=== PATIENT | female | born 1990 | race African-American/Black ===

== ENCOUNTER 2016-09-27 23:03 | Emergency (ER) | payer SELFPAY ==
--- NOTE | 2016-09-28 01:34 | ER Document Report ---
ED Skin Rash/Insect Bite/Abscs - General Chief Complaint: Rash Stated Complaint: SKIN PROBLEM Notes: The patient is a 26-year-old female who presents with 2 days of a painful rash on her left back and then left upper thigh. She thinks that it was a spider bite. She has not had this in the past. She denies fevers, numbness, tingling , pruritus, recent travel or IV drug use. TRAVEL OUTSIDE OF THE [place] IN LAST 30 DAYS: No - Related Data Allergies/Adverse Reactions: No Known Allergies Allergy (Verified 09/28/16 01:24) Past Medical History - General Information source: Patient - Social History Smoking Status: Unknown if Ever Smoked Family History: DM, Hypertension. denies: Arthritis, CAD, CVA, Hyperlipidemia, Malignancy, Thyroid Disfunction Patient has suicidal ideation: No Patient has homicidal ideation: No Renal/ Medical History: Denies: Hx Peritoneal Dialysis Musculoskeltal Medical History: Reports Hx Musculoskeletal Trauma Psychiatric Medical History: Reports: Hx Anxiety - Immunizations Immunizations up to date: Yes Hx Diphtheria, Pertussis, Tetanus Vaccination: Yes - 2008 Review of Systems - Review of Systems Notes: REVIEW OF SYSTEMS: CONSTITUTIONAL: -fevers, -chills EENT: -eye pain, -difficulty swallowing, -nasal congestion CARDIOVASCULAR:-chest pain, -syncope. RESPIRATORY: -cough, -SOB GASTROINTESTINAL: -abdominal pain, - nausea, -vomiting, -diarrhea GENITOURINARY: -dysuria, -hematuria MUSCULOSKELETAL: -back pain, -neck pain SKIN: +rash HEMATOLOGIC: -easy bruising or bleeding. LYMPHATIC: -swollen, enlarged glands. NEUROLOGICAL: -altered mental status or loss of consciousness, -headache, - neurologic symptoms PSYCHIATRIC: -anxiety, -depression. ALL OTHER SYSTEMS REVIEWED AND NEGATIVE. Physical Exam - Vital signs Vitals: Temp Pulse Resp BP Pulse Ox 98.2 F 84 16 136/84 H 100 09/27/16 23:12 09/27/16 23:12 09/27/16 23:12 09/27/16 23:12 09/27/16 23:12 - Notes Notes: PHYSICAL EXAMINATION: GENERAL: Well-appearing, well-nourished and in no acute distress. HEAD: Atraumatic, normocephalic. EYES: Pupils equal round and reactive to light, extraocular movements intact, sclera anicteric, conjunctiva are normal. ENT: nares patent, oropharynx clear without exudates. Moist mucous membranes. NECK: Normal range of motion, supple without lymphadenopathy LUNGS: Breath sounds clear to auscultation bilaterally and equal. No wheezes rales or rhonchi. HEART: Regular rate and rhythm without murmurs ABDOMEN: Soft, nontender, normoactive bowel sounds. No guarding, no rebound. No masses appreciated. EXTREMITIES: Normal range of motion, no pitting or edema. No cyanosis. NEUROLOGICAL: Cranial nerves grossly intact. Normal speech, normal gait. Normal sensory, motor, and reflex exams. PSYCH: Normal mood, normal affect. SKIN: Discrete, tender, erythematous regions over left lower back and left upper leg Course - Re-evaluation Re-evalutation: Patient's symptoms consistent with mild cellulitis. No abscess seen. Does not appear to be zoster. Will begin Bactrim. Given return precautions and she understands. - Vital Signs Vital signs: Temp Pulse Resp BP Pulse Ox 98.2 F 91 15 136/84 H 100 09/27/16 23:14 09/27/16 23:14 09/27/16 23:14 09/27/16 23:14 09/27/16 23:14 Discharge - Discharge Clinical Impression: Cellulitis Qualifiers: Site of cellulitis: unspecified site Qualified Code(s): L03.90 - Cellulitis, unspecified Condition: Good Disposition: HOME, SELF-CARE Additional Instructions: CELLULITIS: You have an infection of your skin and underlying soft tissues called cellulitis. This is due to bacteria, which can enter through any break in the skin, or even through an irritated hair follicle. Untreated, cellulitis will usually worsen. Antibiotics are required. Usually, warm packs or warm soaks, and elevation of the infected area are recommended. You should start getting better within 24 to 36 hours. Most infections respond quickly to the right medication. Follow-up care is important, however, to check for abscess (boil) formation, unsuspected foreign body, or resistant infection. If you develop fever, chills, or if the area of infection is becoming rapidly more swollen or painful, call the doctor at once. MRSA CELLULITIS: You have an infection of your skin and underlying soft tissues called cellulitis. This is due to bacteria, which can enter through any break in the skin, or even through an irritated hair follicle. Untreated, cellulitis will usually worsen and may form an abscess which requires draining. Although many bacterial organisms can cause cellulitis and abscess formations, the most likely bacteria is Methicillin-Resistant Staph Aureus, or MRSA for short. Antibiotics are required. Usually, warm packs or warm soaks, and elevation of the infected area are recommended. You should start getting better within 24 to 36 hours. Most infections respond quickly to the right medication. Follow-up care is important, however, to check for abscess (boil) formation, unsuspected foreign body, or resistant infection. If you develop fever, chills, or if the area of infection is becoming rapidly more swollen or painful, call the doctor at once. ANTIBIOTIC THERAPY: You have been given an antibiotic prescription. It's important that you take all the medication, unless instructed otherwise by your physician. Failure to complete the entire course can result in relapse of your condition. Common side effects of antibiotics include nausea, intestinal cramping, or diarrhea. Women may develop vaginal yeast infections, and babies can get yeast (thrush) in the mouth following the use of antibiotics. Contact your physician if you develop significant side effects from this medication. Allergy to this antibiotic can result in hives, wheezing, faintness, or itching. If symptoms of allergy occur, stop the medication and call the doctor. TRIMETHOPRIM-SULFA: You have been given a prescription for trimethoprim-sulfa (TMS, Septra, Bactrim). This is a combination antibiotic of the sulfa class, often used for urinary tract infections, middle ear infections, bronchitis, shigella intestinal infection, and Pneumocystis pneumonia. TMS is usually well-tolerated. Occasional side effects include nausea and decreased appetite. Septra is not recommended for infants less than two months of age. Do not take this medication if you have experienced severe side effects or allergy to sulfa medicine. You should stop this medicine at once and contact your physician if you develop any rash, joint pain, shortness of breath, bruising, or jaundice ( yellow color in the skin), or if you develop any other new or unusual symptoms. FOLLOW-UP CARE: If you have been referred to a physician for follow-up care, call the physician s office for an appointment as you were instructed or within the next two days. If you experience worsening or a significant change in your symptoms, notify the physician immediately or return to the Emergency Department at any time for re-evaluation. Prescriptions: Sulfamethoxazole/Trimethoprim [Bactrim Ds Tablet] 2 each PO Q12H 7 Days
[2016-09-28] MEDS ORDERED: SULFAMETHOXAZOLE/TRIMETHOPRIM 800-160 MG TABLET PO ONE (01:49)
[2016-09-28 02:26] VITALS: BP 127/74
== END 2016-09-28 02:25 | disposition home or self-care (01) ==
LOC: ER 23:03
DX: L03.90 Cellulitis, unspecified (principal); R21 Rash and other nonspecific skin eruption
CPT/HCPCS: 99282

== ENCOUNTER 2018-01-04 17:14 | Emergency (ER) | payer SELFPAY ==
--- NOTE | 2018-01-04 19:11 | RADIOLOGY REPORT (SQ) ---
EXAM DESCRIPTION: KNEE LEFT 4 VIEW COMPLETED DATE/TIME: 01/04/2018 7:04 pm REASON FOR STUDY: left knee swelling COMPARISON: None. NUMBER OF VIEWS: Four views. TECHNIQUE: AP, lateral, and both oblique radiographic images acquired of the left knee. LIMITATIONS: None. FINDINGS: MINERALIZATION: Normal. BONES: No acute fracture or dislocation. No worrisome bone lesions. No significant osteophytes. JOINT: No effusion. No chondrocalcinosis. OTHER: No other significant finding. IMPRESSION: NEGATIVE STUDY OF THE LEFT KNEE. NO EXPLANATION FOR PAIN. TECHNICAL DOCUMENTATION: JOB ID: [id number] [employer]- All Rights Reserved Reading location - IP/workstation name: [email or web address]
--- NOTE | 2018-01-04 19:46 | ER Document Report ---
ED Extremity Problem, Lower - General Chief Complaint: Leg Swelling Stated Complaint: KNEE PAIN Time Seen by Provider: 01/04/18 18:49 Mode of Arrival: Ambulatory Information source: Patient Notes: Patient is a 27-year-old female who presents to the ER today for swelling to the anterior left knee 8 days. Patient states that it feels tight to the inside of the knee is also tender to touch. She denies any injury that she knows of. She denies any recent travel, hospitalization or surgery. She denies any history of blood clots or calf pain. She denies any redness, weakness or popping when she walks. TRAVEL OUTSIDE OF THE [place] IN LAST 30 DAYS: No - Related Data Allergies/Adverse Reactions: No Known Allergies Allergy (Verified 09/28/16 01:24) Past Medical History - General Information source: Patient - Social History Smoking Status: Never Smoker Family History: DM, Hypertension. denies: Arthritis, CAD, CVA, Hyperlipidemia, Malignancy, Thyroid Disfunction Patient has suicidal ideation: No Patient has homicidal ideation: No Renal/ Medical History: Denies: Hx Peritoneal Dialysis Musculoskeletal Medical History: Reports Hx Musculoskeletal Trauma Psychiatric Medical History: Reports: Hx Anxiety - Immunizations Immunizations up to date: Yes Hx Diphtheria, Pertussis, Tetanus Vaccination: Yes - 2008 Review of Systems - Review of Systems Constitutional: No symptoms reported EENT: No symptoms reported Cardiovascular: No symptoms reported Respiratory: No symptoms reported Gastrointestinal: No symptoms reported Genitourinary: No symptoms reported Female Genitourinary: No symptoms reported Musculoskeletal: See HPI Skin: No symptoms reported Hematologic/Lymphatic: No symptoms reported Neurological/Psychological: No symptoms reported Physical Exam - Vital signs Vitals: Temp Pulse Resp BP Pulse Ox 98.7 F 88 18 135/71 H 100 01/04/18 17:55 01/04/18 17:55 01/04/18 17:55 01/04/18 17:55 01/04/18 17:55 - Notes Notes: PHYSICAL EXAMINATION: GENERAL: Well-appearing and in no acute distress. HEAD: Atraumatic, normocephalic. EYES: Pupils equal round and reactive to light, extraocular movements intact, sclera anicteric, conjunctiva are normal. NECK: Normal range of motion, supple without lymphadenopathy LUNGS: CTAB and equal. No wheezes rales or rhonchi. HEART: Regular rate and rhythm without murmurs EXTREMITIES: Normal range of motion, no pitting edema. No cyanosis. NEUROLOGICAL: Cranial nerves grossly intact. Normal sensory/motor exams. PSYCH: Normal mood, normal affect. SKIN: Warm, Dry, normal turgor, no rashes or lesions noted Course - Re-evaluation Re-evalutation: 01/04/18 19:43 X-ray of the left knee negative for any acute pathology, will give orthopedic information for follow-up. - Vital Signs Vital signs: Temp Pulse Resp BP Pulse Ox 98.7 F 88 18 135/71 H 100 01/04/18 17:55 01/04/18 17:55 01/04/18 17:55 01/04/18 17:55 01/04/18 17:55 Discharge - Discharge Clinical Impression: Knee pain Qualifiers: Chronicity: acute Laterality: left Qualified Code(s): M25.562 - Pain in left knee Condition: Stable Disposition: HOME, SELF-CARE Additional Instructions: Return immediately for any new or worsening symptoms. Follow up with primary care provider, call tomorrow to make followup appointment. Referrals: MJ BEATTY MD [ACTIVE STAFF] - Follow up as needed
[2018-01-04 20:04] VITALS: BP 110/64
== END 2018-01-04 20:04 | disposition home or self-care (01) ==
LOC: ER 17:14
DX: M25.562 Pain in left knee (principal)
CPT/HCPCS: 99283

== ENCOUNTER 2018-08-30 20:52 | Emergency (ER) | payer SELFPAY ==
[2018-08-30 22:18] LABS: APPEARANCE,URINE CLEAR; BILIRUBIN,URINE NEGATIVE (NEGATIVE); COLOR,URINE YELLOW; GLUCOSE, URINE >=500 mg/dL (NEGATIVE); KETONES,URINE 20 mg/dL (NEGATIVE); LEUKOCYTE ESTERASE,URINE NEGATIVE (NEGATIVE); NITRITE,URINE NEGATIVE (NEGATIVE); PROTEIN,URINE NEGATIVE (NEGATIVE); URINE SPECIFIC GRAVITY 1.033; UROBILINOGEN,URINE NEGATIVE mg/dL (<2.0)
[2018-08-30] MEDS ORDERED: NORMAL SALINE 1000 ML 1,000 ML IV ONE (23:21)
--- NOTE | 2018-08-30 23:26 | ER Document Report ---
ED General - General Chief Complaint: Lower Abdominal Pain Stated Complaint: OVERACTIVE BLADDER,BLOOD IN URINE,UTERINE PAINS Time Seen by Provider: 08/30/18 22:54 Primary Care Provider: [facility] [Provider Group] - Follow up as needed [facility] [Provider Group] - Follow up in 3-5 days Notes: Patient is a 28-year-old female that comes to the emergency department for chief complaint of frequent urination, occasional abdominal cramping, intermittent vaginal bleeding out of her normal cycle, and possibly some blood in her urine. She also states that she bought a glucometer and check today at home and it was 350, she states she checked it again most recently it was in the 200s. She does not have a diagnosis of diabetes. She takes no daily medications. Type 2 diabetes does run in the family. TRAVEL OUTSIDE OF THE [place] IN LAST 30 DAYS: No - Related Data Allergies/Adverse Reactions: No Known Allergies Allergy (Verified 09/28/16 01:24) Past Medical History - General Information source: Patient - Social History Smoking Status: Never Smoker Frequency of alcohol use: None Drug Abuse: None Lives with: Family Family History: DM, Hypertension. denies: Arthritis, CAD, CVA, Hyperlipidemia, Malignancy, Thyroid Disfunction Renal/ Medical History: Denies: Hx Peritoneal Dialysis Musculoskeletal Medical History: Reports Hx Musculoskeletal Trauma Psychiatric Medical History: Reports: Hx Anxiety Surgical Hx: Negative - Immunizations Immunizations up to date: Yes Hx Diphtheria, Pertussis, Tetanus Vaccination: Yes - 2008 Review of Systems - Review of Systems Constitutional: See HPI EENT: No symptoms reported Cardiovascular: No symptoms reported Respiratory: No symptoms reported Gastrointestinal: See HPI Genitourinary: See HPI Female Genitourinary: See HPI Musculoskeletal: No symptoms reported Skin: No symptoms reported Hematologic/Lymphatic: No symptoms reported Neurological/Psychological: No symptoms reported Physical Exam - Vital signs Vitals: Temp Pulse Resp BP Pulse Ox 97.9 F 85 16 140/93 H 99 08/30/18 21:27 08/30/18 21:27 08/30/18 21:27 08/30/18 21:27 08/30/18 21:27 - Notes Notes: GENERAL: Alert, interacts well. No acute distress. HEAD: Normocephalic, atraumatic. EYES: Pupils equal, round, and reactive to light. Extraocular movements intact. ENT: Oral mucosa moist, tongue midline. Oropharynx unremarkable. Airway patent. Nares patent, no nasal septal hematoma, TM's intact. NECK: Full range of motion. Supple. Trachea midline. LUNGS: Clear to auscultation bilaterally, no wheezes, rales, or rhonchi. No respiratory distress. HEART: Regular rate and rhythm. No murmur ABDOMEN: Soft, non-tender. Non-distended. Bowel sounds present in all 4 quadrants. GENITOURINARY: Deferred EXTREMITIES: Moves all 4 extremities spontaneously. No edema, normal radial and dorsalis pedis pulses bilaterally. No cyanosis. BACK: no cervical, thoracic, lumbar midline tenderness. No saddle anesthesia, normal distal neurovascular exam. NEUROLOGICAL: Alert and oriented x3. Normal speech. [cranial nerves II through XII grossly intact]. PSYCH: Normal affect, normal mood. SKIN: Warm, dry, normal turgor. No rashes or lesions noted. Course - Re-evaluation Re-evalutation: Patient is well-appearing on exam, soft benign abdomen. She does have some blood in her urine but she is also on her menstrual cycle at this time, she has no dysuria, no signs of infection. Her frequency of urination appears to be from her hyperglycemia, she is significantly hyperglycemic at 628 with obvious previously undiagnosed type 2 diabetes. However her bicarbonate is normal, her anion gap is normal, she is not tachycardic, she is not currently symptomatic. After 1 L of IV fluids her glucose dropped down to 420. She appears to be very responsive. I found at bedside that patient was drinking Sunkist regular. I requested that she stop doing so. She was given insulin, additional IV fluids. Blood sugars dropped down to the 200s rapidly. She appears to be very responsive, she is a type II diabetic, however this appears to be significantly worsened by her diet. Patient admits to drinking consistently regular sodas and sweet tea in addition to carbohydrate consumption in her food. Because of her very responsive nature with her blood sugar, her very poor diet, I suspect that she will be reasonably managed with oral medication, improve diet, outpatient follow-up. I discussed this with Dr. Puri. Patient counseled on diet, me dications, follow-up, and return precautions. Patient and significant other state understanding and agreement. - Vital Signs Vital signs: Temp Pulse Resp BP Pulse Ox 98.0 F 82 18 138/83 H 100 08/31/18 04:35 08/31/18 04:35 08/31/18 04:35 08/31/18 04:35 08/31/18 04:35 - Laboratory Result Diagrams: 08/30/18 23:50 08/30/18 23:50 Laboratory results interpreted by me: 08/30/18 08/30/18 08/30/18 21:49 23:50 23:50 RDW 18.3 H Sodium 130.8 L Chloride 94 L Glucose 628 H* POC Glucose Urine Glucose (UA) >=500 H Urine Ketones 20 H Urine Blood LARGE H 08/31/18 08/31/18 02:12 03:56 RDW Sodium Chloride Glucose POC Glucose 420 H* 289 H Urine Glucose (UA) Urine Ketones Urine Blood Discharge - Discharge Clinical Impression: Hyperglycemia, Dehydration Type II diabetes mellitus Qualifiers: Diabetes mellitus senior living insulin use: without intermediate card tender use Diabetes mellitus complication status: without complication Qualified Code(s): E11.9 - Type 2 diabetes mellitus without complications Condition: Stable Disposition: HOME, SELF-CARE Additional Instructions: You have type 2 diabetes. You have been treated for dehydration and elevated blood glucose levels. Take the prescribed medication, avoid sugary foods including sodas, sweet tea, carbohydrates such as breads, cakes, etc. Eat mainly proteins and vegetables if you can. Follow-up closely with the primary care referral for additional evaluation and management of your diabetes. Return if you worsen including vomiting, dizziness, fever, or any other concerning symptoms. Prescriptions: Metformin HCl [Glucophage 500 mg Tablet] 500 mg PO BID #60 tablet Forms: Parent Work Note, Return to Work Referrals: [facility] [Provider Group] - Follow up in 3-5 days [facility] [Provider Group] - Follow up as needed
[2018-08-31 00:04] LABS: ABSOLUTE BASOPHILS # (AUTO) 0.1 10^3/uL (0.0-0.2); ABSOLUTE EOSINOPHILS # (AUTO) 0.1 10^3/uL (0.0-0.6); ABSOLUTE LYMPHOCYTES (AUTO) 2.2 10^3/uL (0.5-4.7); ABSOLUTE MONOCYTES (AUTO) 0.8 10^3/uL (0.1-1.4); ABSOLUTE NEUT (AUTO) 6.7 10^3/uL (1.7-8.2); BASOPHILS % (AUTO) 0.6 % (0-2); EOSINOPHILS % (AUTO) 0.9 % (0-6); HEMATOCRIT 39.5 % (36.0-47.0); LYMPHOCYTES % (AUTO) 22.4 % (13-45); MEAN CORPUSCULAR HEMOGLOBIN 27.7 pg (27.0-33.4); MEAN CORPUSCULAR VOLUME 84 fl (80-97); MONOCYTES % (AUTO) 8.4 % (3-13); PLATELET COUNT 399 10^3/uL (150-450); RED BLOOD COUNT 4.71 10^6/uL (3.72-5.28); RED CELL DISTRIBUTION WIDTH 18.3 % (11.5-14.0); SEGMENTED NEUTROPHILS % (AUTO) 67.7 % (42-78); TOTAL CELLS COUNTED % (AUTO) 100 %; WHITE BLOOD COUNT 9.9 10^3/uL (4.0-10.5)
[2018-08-31 00:29] LABS: ANION GAP 15 (5-19); BLOOD UREA NITROGEN 12 mg/dL (7-20); CALCIUM 9.6 mg/dL (8.4-10.2); CARBON DIOXIDE 22 mmol/L (22-30); CHLORIDE 94 mmol/L (98-107); POTASSIUM 4.4 mmol/L (3.6-5.0); SODIUM 130.8 mmol/L (137-145)
[2018-08-31 00:39] LABS: GLUCOSE 628 mg/dL (75-110)
[2018-08-31] MEDS ORDERED: NORMAL SALINE 1000 ML 1,000 ML IV ONE (00:58)
[2018-08-31] MEDS ORDERED: INSULIN REG, HUMAN 100 UNIT/ML 3 ML VIAL (PYX) SUBCUT ONE (02:14)
[2018-08-31 04:37] VITALS: BP 138/83
== END 2018-08-31 04:36 | disposition home or self-care (01) ==
LOC: ER 20:52
DX: E11.65 Type 2 diabetes mellitus with hyperglycemia (principal); E86.0 Dehydration; N93.9 Abnormal uterine and vaginal bleeding, unspecified; R10.30 Lower abdominal pain, unspecified; N32.81 Overactive bladder; R31.9 Hematuria, unspecified; R10.2 Pelvic and perineal pain; R35.0 Frequency of micturition
CPT/HCPCS: 99283; 96360; 96361; 36415; 82962; 85025; 81025; 80048; 81001; J1815; J7030 ×2

== ENCOUNTER 2018-12-05 13:39 | Emergency (ER) | payer SELFPAY ==
[2018-12-05 13:48] VITALS: BP 123/67
--- NOTE | 2018-12-05 14:47 | ER Document Report ---
Addendum entered and electronically signed by PAPO MARTINEZ PA-C 12/05/18 15:26: Course - Re-evaluation Re-evalutation: 12/05/18 15:19 Patient with symptoms consistent with a muscle strain after a fall. Patient able to bear weight on her left leg and ambulate with a limp. Normal distal neurovascular exam. No swelling of the knee or ankle. Tenderness to palpation along the medial posterior proximal left leg. Varus valgus stress testing did not reveal any significant laxity. Patient became irate and accused me of racial profiling due to miscommunication because of a request for her "pain medication". I wrote her a prescription for Motrin but clarified that narcotic pain medication is not appropriate for this type of injury and NSAIDs are the appropriate treatment with RICE therapy. She then proceeded to accuse me of racial profiling thinking that she was just a drug seeker. Throughout the entire interview for history and physical when I explained to her that she most likely sustained a muscle strain she repeatedly shook her head and acted miffed and stated "why did I even come here, I could have just done this at home". Patient was obviously disappointed and I told her that I will get her paperwork together give her a prescription for Motrin. At that point I went to see another patient, return to my workstation, and delayed in adding the Motrin prescription. I received a message from staff with the patient asking about her pain medication and I misconstrued that as her requesting narcotic pain medication when in fact it was Motrin. At no time was there any racial bias in the encounter. Patient was disrespectful to me and to the entire staff. Patient will be filing a complaint with administration. - Vital Signs Vital signs: Temp Pulse Resp BP Pulse Ox 99.4 F 107 H 20 123/67 100 12/05/18 13:47 12/05/18 13:47 12/05/18 13:47 12/05/18 13:47 12/05/18 13:47 Original Note: HPI - HPI Patient complains to provider of: left leg pain Time Seen by Provider: 12/05/18 14:15 Pain Level: 5 Context: 28-year-old healthy female presents emergency department with chief complaint of "pulled hamstring and buttock muscle". She said it happened yesterday when she fell and she was otherwise okay and now it is tight, she cannot bend her leg, and has difficulty putting pressure on her left leg. Denies any fevers or chills, denies hearing a pop, no other complaints. - REPRODUCTIVE Reproductive: DENIES: : Past Medical History - Social History Smoking Status: Unknown if Ever Smoked Family History: DM, Hypertension. denies: Arthritis, CAD, CVA, Hyperlipidemia, Malignancy, Thyroid Disfunction Renal/ Medical History: Denies: Hx Peritoneal Dialysis Musculoskeletal Medical History: Reports Hx Musculoskeletal Trauma Psychiatric Medical History: Reports: Hx Anxiety - Immunizations Immunizations up to date: Yes Hx Diphtheria, Pertussis, Tetanus Vaccination: Yes - 2008 Vertical Provider Document - CONSTITUTIONAL Notes: PHYSICAL EXAMINATION: Reviewed vital signs and charting by RN GENERAL: Alert, interacts well. No acute distress. HEAD: Normocephalic, atraumatic. EYES: Pupils equal and round. Extraocular movements intact. ENT: Oral mucosa moist, tongue midline. NECK: Full range of motion. Trachea midline. EXTREMITIES: Moves all 4 extremities spontaneously. No edema, No cyanosis. able to bear weight, can ambulate with a limp PSYCH: Normal affect, normal mood. SKIN: Warm, dry, normal turgor. No rashes or lesions noted. - INFECTION CONTROL TRAVEL OUTSIDE OF THE [place] IN LAST 30 DAYS: No Course - Re-evaluation Re-evalutation: 12/05/18 14:46 Symptoms consistent with a muscle strain, very low concern for internal knee injury. Patient able to bear weight on it with difficulty. I will offer crutches. No unilateral leg swelling, no fevers no pain out of proportion to movement. Stable for discharge - Vital Signs Vital signs: Temp Pulse Resp BP Pulse Ox 99.4 F 107 H 20 123/67 100 12/05/18 13:47 12/05/18 13:47 12/05/18 13:47 12/05/18 13:47 12/05/18 13:47 Discharge - Discharge Clinical Impression: Hamstring injury Qualifiers: Encounter type: initial encounter Laterality: left Qualified Code(s): S76.302A - Unspecified injury of muscle, fascia and tendon of the posterior muscle group at thigh level, left thigh, initial encounter Condition: Good Disposition: HOME, SELF-CARE Instructions: Muscle Strain ([facility]), Acetaminophen, Use of [id number] Ibuprofen ([facility])
== END 2018-12-05 15:22 | disposition home or self-care (01) ==
LOC: ER 13:39
DX: S76.302A Unspecified injury of muscle, fascia and tendon of the posterior muscle group at thigh level, left thigh, initial encounter (principal); M79.605 Pain in left leg; X50.0XXA Overexertion from strenuous movement or load, initial encounter
CPT/HCPCS: 99283

== ENCOUNTER 2020-02-16 00:44 | Emergency (ER) | payer SELFPAY ==
[2020-02-16 01:00] VITALS: BP 133/83
[2020-02-16] MEDS ORDERED: ACETAMINOPHEN 325 MG TABLET PO ONE (01:24)
--- NOTE | 2020-02-16 01:26 | ER Document Report ---
ED Medical Screen (RME) - General Chief Complaint: Abscess Stated Complaint: UNDER ARM ABSCESS Time Seen by Provider: 02/16/20 01:20 Primary Care Provider: GARRY MADRIGAL MD [Primary Care Provider] - Follow up as needed Mode of Arrival: Ambulatory Information source: Patient Notes: HPI; 29-year-old female presents to the emergency room complaining of an abscess to her right upper arm that she noticed 3 days ago. Denies any fevers. History of previous abscesses but states they usually drain on their own without intervention. She states she is been unable to get this wound to drain. She denies any trauma or injury to it. Has been trying warm compresses without relief. Has not taken any medications for pain. PE: Alert and oriented x3. Mild distress noted. Lungs: Clear to auscultation without rales, rhonchi, wheezes. Heart: Regular rate rhythm without murmurs, rubs, gallops. Upper right arm with a fluctuant, warm, tender, erythematous abscess that is noted. I have greeted and performed a rapid initial assessment of this patient. A comprehensive ED assessment and evaluation of the patient, analysis of test results and completion of the medical decision making process will be conducted by additional ED providers. I have specifically instructed the patient or family members with the patient to immediately return to any nursing staff should anything change in the patient's condition or with their chief complaint. TRAVEL OUTSIDE OF THE [place] IN LAST 30 DAYS: No - Related Data Allergies/Adverse Reactions: No Known Allergies Allergy (Verified 02/16/20 01:20) Past Medical History Endocrine Medical History: Reports: Hx Diabetes Mellitus Type 2 Renal/ Medical History: Denies: Hx Peritoneal Dialysis Musculoskeltal Medical History: Reports Hx Musculoskeletal Trauma Psychiatric Medical History: Reports: Hx Anxiety - Immunizations Immunizations up to date: Yes Hx Diphtheria, Pertussis, Tetanus Vaccination: Yes - 2008 Physical Exam - Vital signs Vitals: Temp Pulse Resp BP Pulse Ox 98.2 F 104 H 18 133/83 H 98 02/16/20 00:59 02/16/20 00:59 02/16/20 00:59 02/16/20 00:59 02/16/20 00:59 Course - Vital Signs Vital signs: Temp Pulse Resp BP Pulse Ox 98.2 F 104 H 18 133/83 H 98 02/16/20 00:59 02/16/20 00:59 02/16/20 00:59 02/16/20 00:59 02/16/20 00:59 Doctor's Discharge - Discharge Referrals: GARRY MADRIGAL MD [Primary Care Provider] - Follow up as needed
== END 2020-02-16 04:43 | disposition left against medical advice (07) ==
LOC: ER 00:44
DX: Z53.20 Procedure and treatment not carried out because of patient's decision for unspecified reasons (principal); L02.411 Cutaneous abscess of right axilla; E11.9 Type 2 diabetes mellitus without complications
CPT/HCPCS: 99281